=== PATIENT | male | born 1985 | race Caucasian/White ===

== ENCOUNTER 2020-01-08 13:02 | Emergency (ER) | payer OTHER ==
[~2020-01-08] VITALS: Ht 175.3 cm; Wt 116.2 kg
[~2020-01-08 13:02] MED LIST: HYDR473S47 PO
--- NOTE | 2020-01-08 14:24 | NUR ---
HIRED HELP;PT IN LAB, WILL GO TO ROOM AFTER DRAW COMPLETE
--- NOTE | 2020-01-08 14:30 | NUR ---
PT AMBULATED TO ROOM FROM LAB ROOM.
--- NOTE | 2020-01-08 14:31 | NUR ---
PT RESTING ON GURNEY, NAD NOTED AT THIS TIME, WILL CONTINUE TO MONITOR. PER PT NO NEEDS A THIST TIME.
[2020-01-08 15:11] VITALS: BP 137/89
== END 2020-01-08 15:16 | disposition home or self-care (01) ==
LOC: ED 14:04
DX: S43.402A Unspecified sprain of left shoulder joint, initial encounter (principal); F17.210 Nicotine dependence, cigarettes, uncomplicated; V89.2XXA Person injured in unspecified motor-vehicle accident, traffic, initial encounter; Y93.89 Activity, other specified; Y92.410 Unspecified street and highway as the place of occurrence of the external cause; Y99.8 Other external cause status
CPT/HCPCS: 99281; 99406